=== PATIENT | female | born 1975 | race Two or more races ===

== ENCOUNTER 2022-03-08 07:58 | Outpatient (CLI) | payer OTHER ==
[~2022-03-08] VITALS: Ht 154.9 cm; Wt 95.3 kg
[2022-03-17] MEDS ORDERED: VITAMIN D PO (12:44)
== END 2022-03-08 08:09 | disposition home or self-care (01) ==
LOC: LAB 07:58
PROVIDERS: ATTEND Orthopaedic Surgery
DX: D64.9 Anemia, unspecified (principal); E88.9 Metabolic disorder, unspecified; D68.8 Other specified coagulation defects; N39.0 Urinary tract infection, site not specified; E11.9 Type 2 diabetes mellitus without complications; Z76.89 Persons encountering health services in other specified circumstances; I10 Essential (primary) hypertension; I49.9 Cardiac arrhythmia, unspecified

== ENCOUNTER 2022-03-19 05:50 | Day surgery (SDC) | payer OTHER ==
[~2022-03-19 05:50] MED LIST: VITAMIN D PO
== END 2022-03-19 13:55 | disposition home or self-care (01) ==
LOC: CIR.AMB 05:50
PROVIDERS: ATTEND Orthopaedic Surgery
DX: M23.232 Derangement of other medial meniscus due to old tear or injury, left knee (principal); Z20.822 Contact with and (suspected) exposure to COVID-19; E03.9 Hypothyroidism, unspecified; E66.9 Obesity, unspecified